=== PATIENT | male | born 2000 | race Caucasian/White ===

== ENCOUNTER 2023-08-18 10:05 | Emergency (ER) | payer BC, SELFPAY ==
[2023-08-18 10:14] VITALS: BP 120/77; PULSE 77; RESP 18; TEMP 36.7; O2SAT 100; BMI 29.8
[2023-08-18 10:37] LABS: Internal Control Within Normal Limits; Strep A Antigen Screen Negative
--- NOTE | 2023-08-18 10:37 | ED.GENADUL1 ---
HPI - General Adult General Chief complaint: Upper Respiratory Infection Stated complaint: sore throat Time Seen by Provider: 08/18/23 10:33 Source: patient Mode of arrival: walk-in Limitations: no limitations History of Present Illness HPI narrative: 22-year-old male presents for sore throat. For the past two or three days he feels like it swollen and it hurts when he swallows. No fever. No known ill contacts. No cough or abdominal pain or vomiting. Related Data Home Medications Medication Instructions Recorded Confirmed No Known Home Medications 08/18/23 08/18/23 Allergies Allergy/AdvReac Type Severity Reaction Status Date / Time No Known Drug Allergies Allergy Verified 08/18/23 10:18 Review of Systems ROS Narrative A ten point review of systems is negative except as noted above. PFSH PFSH Social History Smoking status: Current every day smoker Exam Narrative Exam Narrative: Nurses note and vital signs reviewed and patient is not hypoxic. General: The patient appears well and in no apparent distress. Patient is resting comfortably on cart. Skin: Warm, dry, no pallor noted. There is no rash noted. Head: Normocephalic, atraumatic Eye: Normal conjunctiva, no drainage, Ears, Nose, Mouth, and Throat: oral mucosa is moist. Nares patent. Mouth without vesicles. minimal pharyngeal erythema. No exudate. Uvula is midline. No swelling noted. Cardiovascular: Regular Rate and Rhythm Respiratory: Patient is in no distress, no accessory muscle use, lungs are clear to auscultation, no wheezing, rales or rhonchi Back: non-tender GI: soft and nontender Musculoskeletal: The patient has no evidence of calf tenderness, no pitting edema, symmetrical pulses noted bilaterally Neurological: A&O, normal speech Psychiatric: Cooperative Constitutional Vital Signs, click to edit/add: Last Vital Signs Temp 98.0 F 08/18/23 10:14 Pulse 77 08/18/23 10:14 Resp 18 08/18/23 10:14 BP 120/77 08/18/23 10:14 Pulse Ox 100 08/18/23 10:14 O2 Del Method Room Air 08/18/23 10:14 Course Vital Signs Vital signs: Vital Signs Temperature 98.0 F 08/18/23 10:14 Pulse Rate 77 08/18/23 10:14 Respiratory Rate 18 08/18/23 10:14 Blood Pressure 120/77 08/18/23 10:14 Pulse Oximetry 100 08/18/23 10:14 Oxygen Delivery Method Room Air 08/18/23 10:14 Temperature 98.0 F 08/18/23 10:14 Pulse Rate 77 08/18/23 10:14 Respiratory Rate 18 08/18/23 10:14 Blood Pressure 120/77 08/18/23 10:14 Pulse Oximetry 100 08/18/23 10:14 Oxygen Delivery Method Room Air 08/18/23 10:14 Medical Decision Making MDM Narrative Medical decision making narrative: Strep test is negative. Antibiotic not indicated. He was given IM Decadron. Treatment diagnosis and follow-up were discussed with the patient. Differential Diagnosis Differential Diagnosis: strep throat, viral pharyngitis, uvulitis Lab Data Lab results reviewed: Yes I reviewed the patient's lab results Labs: Lab Results 08/18/23 Range/Units 10:20 Streptococcus Screen Negative Discharge Plan Discharge Chief Complaint: Upper Respiratory Infection Clinical Impression: Viral pharyngitis Patient Disposition: Home, Self-Care Time of Disposition Decision: 10:43 Condition: Good Mode of Transportation: Private Vehicle Prescriptions / Home Meds: No Action No Known Home Medications Instructions: Pharyngitis (ED) Stand Alone Forms: Portal Instructions Referrals: Physician,Non-Staff, MD [Primary Care Provider] - 1 week
[2023-08-18] MEDS: DEXAMETHASONE SOD PHOS 10 MG/ML VIAL IM (10:54)
[2023-08-18 11:04] VITALS: PULSE 85; RESP 16; O2SAT 95
== END 2023-08-18 11:07 | disposition home or self-care (01) ==
PROVIDERS: Emergency Provider Emergency Medicine
DX: J02.9 Acute pharyngitis, unspecified (principal); F17.210 Nicotine dependence, cigarettes, uncomplicated
CPT/HCPCS: 87070; 87880; 96372; 99284; J1100